=== PATIENT | male | born 2000 | race Caucasian/White ===

== ENCOUNTER → 2021-04-19 | Outpatient (CLI) | payer BC ==
--- NOTE | 2021-04-19 10:52 | MR ---
EXAMINATION TYPE: MR pituitary wo/w con DATE OF EXAM: 04/19/2021 COMPARISON: None HISTORY: Elevated hormone levels. TECHNIQUE: Multiplanar, multisequence images of the pituitary is performed without and with IV contrast, utilizi ng 12 mL intravenous Gadavist . FINDINGS: A pituitary gland enhances homogeneously. There is no localized areas of reduced enhancement. Minimal stalk deviation to the left. No diagnostic evidence of sellar or suprasellar mass. Pituitary gland o f normal size. Craniocervical junction maintained with cerebellar tonsils low-lying in position at the level the for amen magnum. Normal vascular signal voids noted.. A prominent lymph nodes in the left parotid space c ould be correlated with CT scan as clinically warranted. IMPRESSION: 1. No diagnostic evidence of pituitary mass. 2. Prominent lymph nodes seen bilaterally with soft tissue neck are nonspecific and likely incidental finding. Soft tissue CT neck with contrast could be obtained as clinically warranted
== END | disposition home or self-care (01) ==
LOC: RADMRIMAIN 08:53
PROVIDERS: ATTEND Family Medicine
DX: Z01.89 Encounter for other specified special examinations (principal)
CPT/HCPCS: 70553; A9585

== ENCOUNTER → 2021-04-19 | Outpatient (CLI) | payer BC ==
--- NOTE | 2021-04-19 12:02 | US ---
EXAMINATION TYPE: US abdomen complete DATE OF EXAM: 04/19/2021 COMPARISON: NONE CLINICAL HISTORY: 20-year-old male R94.5 elevated liver enzymes TECHNIQUE: Multiple sonographic images of the abdomen are obtained. FINDINGS: EXAM MEASUREMENTS: Liver Length: 14.7 cm Gallbladder Wall: 0.1 cm CBD: 0.2 cm Spleen: 13.0 cm Right Kidney: 11.8 x 5.0 x 6.3 cm Left Kidney: 11.4 x 6.5 x 5.2 cm Supervisor Sewing Room notes: Patient of large body habitus. Pancreas: Only a portion of the pancreatic neck and body is seen. The head and tail are secured by andrew wel gas shadowing. Liver: Increased attenuation Gallbladder: wnl Evidence for sonographic Warren's sign: CBD: wnl Spleen: wnl Right Kidney: portions visualized wnl, somewhat limited views due to overlying bowel gas Left Kidney: portions visualized wnl, somewhat limited views due to overlying bowel gas Upper IVC: Small portion of the hepatic IVC shows no gross anomaly. Abd Aorta: portions visualized wnl, somewhat limited views due to overlying bowel gas IMPRESSION: Limited by patient body habitus and bowel gas shadowing. No gallstones or biliary ductal dilatation. Relatively normal, homogeneous echotexture of the liver by ultrasound.
== END | disposition home or self-care (01) ==
LOC: RADUSWWP 08:10
PROVIDERS: ATTEND Family Medicine
DX: R94.5 Abnormal results of liver function studies (principal)
CPT/HCPCS: 76700

== ENCOUNTER 2022-08-16 09:50 | Emergency (ER) | payer BC ==
[2022-08-16 09:54] VITALS: PULSE 85; RESP 18; TEMP 98.6
[2022-08-16 10:31] VITALS: BP 157/99
[2022-08-16 10:54] LABS: Basophils # (A) 0.1 k/uL (0-0.2); Basophils % (A) 1 %; Eosinophils # (A) 0.2 k/uL (0-0.7); Eosinophils % (A) 2 %; HCT 45.2 % (39.0-53.0); HGB 15.3 gm/dL (13.0-17.5); Lymphocytes # (A) 2.8 k/uL (1.0-4.8); Lymphocytes % (A) 32 %; MCH 27.1 pg (25.0-35.0); MCHC 33.8 g/dL (31.0-37.0); MCV 80.1 fL (80.0-100.0); Mean Platelet Volume 7.9; Monocytes # (A) 0.5 k/uL (0-1.0); Monocytes % (A) 6 %; Neutrophils # (A) 4.9 k/uL (1.3-7.7); Neutrophils % (A) 57 %; Platelet Count 301 k/uL (150-450); RBC 5.64 m/uL (4.30-5.90); RDW 12.7 % (11.5-15.5); WBC 8.6 k/uL (3.8-10.6)
--- NOTE | 2022-08-16 11:09 | ED ---
General Adult HPI - General Chief complaint: Recheck/Abnormal Lab/Rx Stated complaint: hypertension Time Seen by Provider: 08/16/22 09:56 Source: patient, RN notes reviewed Mode of arrival: ambulatory Limitations: no limitations - History of Present Illness Initial comments: 21-year-old male presents emergency Department with chief complaint of high bloo d pressure. Patient states that he has had some readings in the past that his blood pressure was high states he felt dizzy yesterday in which they decided to start checking his blood pressure. He is found to be elevated he states he is asymptomatic currently. He states he is waiting get into his primary care physician. He denies chest pain shortness breath nausea vomiting headache blurred vision no other associated complaints. - Related Data Previous Rx's Medication Instructions Recorded lisinopriL [Zestril] 10 mg PO DAILY #30 tab 08/16/22 Allergies Allergy/AdvReac Type Severity Reaction Status Date / Time No Known Allergies Allergy Verified 08/16/22 09:54 Review of Systems ROS Statement: Those systems with pertinent positive or pertinent negative responses have been documented in the HPI. ROS Other: All systems not noted in ROS Statement are negative. Past Medical History Past Medical History: No Reported History History of Any Multi-Drug Resistant Organisms: None Reported Past Surgical History: No Surgical Hx Reported Past Psychological History: No Psychological Hx Reported Smoking Status: Never smoker Past Alcohol Use History: None Reported Past Drug Use History: None Reported General Exam Limitations: no limitations General appearance: alert, in no apparent distress Head exam: Present: atraumatic, normocephalic, normal inspection Eye exam: Present: normal appearance, PERRL, EOMI. Absent: scleral icterus, con junctival injection, periorbital swelling ENT exam: Present: normal exam, normal oropharynx, mucous membranes moist Neck exam: Present: normal inspection, full ROM. Absent: tenderness, meningismus, lymphadenopathy Respiratory exam: Present: normal lung sounds bilaterally. Absent: respiratory distress, wheezes, rales, rhonchi, stridor Cardiovascular Exam: Present: regular rate, normal rhythm, normal heart sounds. Absent: systolic murmur, diastolic murmur, rubs, gallop, clicks GI/Abdominal exam: Present: soft, normal bowel sounds. Absent: distended, tenderness, guarding, rebound, rigid Course Vital Signs 08/16/22 08/16/22 09:52 10:31 Temperature 98.6 F Pulse Rate 85 Respiratory 18 Rate Blood Pressure 163/104 157/99 O2 Sat by Pulse 99 Oximetry EKG Findings - EKG Comments: EKG Findings:: EKG performed at 10:04 sinus rhythm with a rate of 84 ME 128 QRS 100 QT/QTC 368/409 Medical Decision Making - Medical Decision Making Was pt. sent in by a medical professional or institution (, [facility], [facility], urgent care, hospital, or fpc...) When possible be specific @ -No Did you speak to anyone other than the patient for history (EMS, parent, family, police, friend...)? What history was obtained from this source @ -No Did you review nursing and triage notes (agree or disagree)? Why? @ -I reviewed and agree with nursing and triage notes Were old charts reviewed (outside hosp., previous admission, EMS record, old EKG, old radiological studies, urgent care reports/EKG's, fpc records)? Report findings @ -No old charts were reviewed Differential Diagnosis (chest pain, altered mental status, abdominal pain women, abdominal pain men, vaginal bleeding, weakness, fever, dyspnea, syncope, h eadache, dizziness, GI bleed, back pain, seizure, CVA, palpatations, mental health)? @ -Hypertension, renal failure, dehydration, EKG interpreted by me (3pts min.). @ -As above X-rays interpreted by me (1pt min.). @ -None done CT interpreted by me (1pt min.). @ -None done U/S interpreted by me (1pt. min.). @ -None done What testing was considered but not performed or refused? (CT, X-rays, U/S, labs)? Why? @ -None What meds were considered but not given or refused? Why? @ -None Did you discuss the management of the patient with other professionals (professionals i.e. , [facility], [facility], lab, RT, psych nurse, social worker palliative care, accounting clerks supervisor, te acher, patrol officer, case filler)? Give summary @ -No Was smoking cessation discussed for >3mins.? @ -No Was critical care preformed (if so, how long)? @ -No Were there social determinants of health that impacted care today? How? (Homelessness, low income, unemployed, alcoholism, drug addiction, transportation, low edu. Level, literacy, decrease access to med. care, detention, rehab)? @ -No Was there de-escalation of care discussed even if they declined (Discuss DNR or withdrawal of care, Hospice)? DNR status @ -No What co-morbidities impacted this encounter? (DM, HTN, Smoking, COPD, CAD, Cancer, CVA, ARF, Chemo, Hep., AIDS, mental health diagnosis, sleep apnea, morbid obesity)? @ -None Was patient admitted / discharged? Hospital course, mention meds given and rou te, prescriptions, significant lab abnormalities, going to OR and other pertinent info. @ -Discharge. Patient has mild distention is a symptomatic. Patient had multiple days with readings very consistent. Patient was started on low-dose Cipro advised to follow-up for recheck and return parameters were discussed. Undiagnosed new problem with uncertain prognosis? @ -No Drug Therapy requiring intensive monitoring for toxicity (Heparin, Nitro, Insulin, Cardizem)? @ -No Were any procedures done? @ -No Diagnosis/symptom? @ -Hypertension Acute, or Chronic, or Acute on Chronic? @ -Acute Uncomplicated (without systemic symptoms) or Complicated (systemic symptoms)? @ -Uncomplicated Side effects of treatment? @ -No Exacerbation, Progression, or Severe Exacerbation? @ -No Poses a threat to life or bodily function? How? (Chest pain, USA, GA, pneumonia, PE, COPD, DKA, ARF, appy, cholecystitis, CVA, Diverticulitis, Homicidal, Suicidal, threat to staff... and all critical care pts) @ -No - Lab Data Result diagrams: 08/16/22 10:28 08/16/22 10:28 Lab Results 08/16/22 08/16/22 Range/Units 10:28 10:28 WBC 8.6 (3.8-10.6) k/uL RBC 5.64 (4.30-5.90) m/uL Hgb 15.3 (13.0-17.5) gm/dL Hct 45.2 (39.0-53.0) % MCV 80.1 (80.0-100.0) fL MCH 27.1 (25.0-35.0) pg MCHC 33.8 (31.0-37.0) g/dL RDW 12.7 (11.5-15.5) % Plt Count 301 (150-450) k/uL MPV 7.9 Neutrophils % 57 % Lymphocytes % 32 % Monocytes % 6 % Eosinophils % 2 % Basophils % 1 % Neutrophils # 4.9 (1.3-7.7) k/uL Lymphocytes # 2.8 (1.0-4.8) k/uL Monocytes # 0.5 (0-1.0) k/uL Eosinophils # 0.2 (0-0.7) k/uL Basophils # 0.1 (0-0.2) k/uL Sodium 138 (137-145) mmol/L Potassium 4.5 (3.5-5.1) mmol/L Chloride 106 (98-107) mmol/L Carbon Dioxide 24 (22-30) mmol/L Anion Gap 8 mmol/L BUN 14 (9-20) mg/dL Creatinine 0.77 (0.66-1.25) mg/dL Est GFR (CKD-EPI)AfAm >90 (>60 ml/min/1.73 sqM) Est GFR (CKD-EPI)NonAf >90 (>60 ml/min/1.73 sqM) Glucose 113 H (74-99) mg/dL Calcium 9.7 (8.4-10.2) mg/dL Total Bilirubin 0.5 (0.2-1.3) mg/dL AST 45 (17-59) U/L ALT 92 H (4-49) U/L Alkaline Phosphatase 149 H (38-126) U/L Total Protein 8.4 H (6.3-8.2) g/dL Albumin 4.5 (3.5-5.0) g/dL Disposition Clinical Impression: Hypertension Disposition: HOME SELF-CARE Condition: Stable Instructions (If sedation given, give patient instructions): Hypertension (ED) Additional Instructions: Please return to the Emergency Department if symptoms worsen or any other alex rns. Prescriptions: lisinopriL [Zestril] 10 mg PO DAILY #30 tab Is patient prescribed a controlled substance at d/c from ED?: No Referrals: Sabrina Ordaz MD [Primary Care Provider] - 1-2 days Time of Disposition: 11:47
[2022-08-16 11:14] LABS: ALT 92 U/L (4-49); AST 45 U/L (17-59); African American GFR (CKD) >90 (>60 ml/min/1.73 sqM); Albumin 4.5 g/dL (3.5-5.0); Alkaline Phosphatase 149 U/L (38-126); Anion Gap 8 mmol/L; Blood Urea Nitrogen 14 mg/dL (9-20); Calcium 9.7 mg/dL (8.4-10.2); Carbon Dioxide 24 mmol/L (22-30); Chloride 106 mmol/L (98-107); Glucose 113 mg/dL (74-99); Non-African American GFR(CKD) >90 (>60 ml/min/1.73 sqM); Potassium 4.5 mmol/L (3.5-5.1); Sodium 138 mmol/L (137-145); Total Bilirubin 0.5 mg/dL (0.2-1.3); Total Protein 8.4 g/dL (6.3-8.2)
[2022-08-16] MEDS ORDERED: lisinopriL 10 MG TAB PO STA (11:44)
== END 2022-08-16 12:19 | disposition home or self-care (01) ==
LOC: EC 09:50
DX: I10 Essential (primary) hypertension (principal)
CPT/HCPCS: 36415; 80053; 85025; 93005; 99283

== ENCOUNTER → 2023-10-10 | Outpatient (CLI) | payer BC ==
--- NOTE | 2023-10-10 16:49 | US ---
EXAMINATION TYPE: US renal artery duplex complet DATE OF EXAM: 10/10/2023 COMPARISON: NONE CLINICAL INDICATION: Male, 23 years old with history of I10 HTN; Controlled HTN MEASUREMENTS: RENAL SIZE: Right Kidney: 12.9 x 5.0 x 7.2 cm Left Kidney: 12.4 x 6.4 x 5.3 cm Right Kidney: wnl Left Kidney: wnl Abd Aorta: wnl RESISTANCE INDEX Right: 0.82 Left: 0.87 RA/AO RATIO (< 3.5 ) Right: 0.70 Left: 0.64 RENAL ARTERY VELOCITY ( < 180 cm/s) Right: 92 Left: 87 Weight And Balance Control Agent Notes: Unremarkable exam IMPRESSION: 1. No significant stenosis bilateral renal arteries
== END | disposition home or self-care (01) ==
LOC: RADUSWWP 06:59
PROVIDERS: ATTEND Family Medicine
DX: I10 Essential (primary) hypertension (principal)
CPT/HCPCS: 93975